=== PATIENT | female | born 1975 | race Hispanic/Latino ===

== ENCOUNTER 2017-10-13 10:08 | Outpatient (CLI) | payer OTHER, SELFPAY ==
--- NOTE | 2017-10-13 13:15 | MMO ---
BASELINE BILATERAL SCREENING MAMMOGRAM: Date: 10/13/17 COMPARISON: None. HISTORY: Screening. FINDINGS: This patient's mammogram was interpreted with the assistance of computer-aided detection. The breast parenchyma is heterogeneously dense, limiting mammographic sensitivity. No dominant mass, architectural distortion, or concerning calcifications are seen. Punctate, benign-appearing calcifica tions are noted on the right. On right MLO image, there is an oval density measuring approximately 7.0 mm superiorly, just anterior to the pectoralis muscle shadow, without a definitive CC correlate. IMPRESSION: BIRADS 0: Incomplete: Need Additional Imaging Evaluation and/or Prior Mammograms for Comparison Findings suggesting a 7.0 mm mass superiorly on right MLO view. Recommend spot magnification compress ion imaging and focused breast ultrasound as clinically indicated. The facility will notify the patient of the need for additional imaging services. POS: [facility]
== END 2017-10-13 10:09 | disposition home or self-care (01) ==
LOC: SCSMAMMO 10:08
PROVIDERS: ATTEND Nurse Practitioner Women's Health
DX: Z12.31 Encounter for screening mammogram for malignant neoplasm of breast (principal)
CPT/HCPCS: 77067